=== PATIENT | female | born 1955 | race Caucasian/White ===

== ENCOUNTER 2017-10-04 19:43 | Emergency (ER) | payer OTHER ==
[2017-10-04 20:38] LABS: Bicarbonate 26 mEq/L (21-31); Glucose Level 76 mg/dL (65-120); Lipase 24 U/L (22-51); Sodium Level 140 mEq/L (135-145)
[2017-10-04 20:41] LABS: Absolute Monocytes 0.4 K/uL (0.1-1.3); Basophils % 0.8 % (0-1.3); Eosinophils % 2.1 % (0-4.4); Hematocrit 34.6 % (36.0-45.0); MCH 30.6 pg (27.0-35.0); MCV 90.3 fL (80-100); MPV 8.1 fL (7.6-11.3); Monocytes % 8.9 % (3.3-12.3); RBC Red Blood Cell Count 3.83 M/uL (3.86-4.86)
[2017-10-04 20:43] LABS: Protime INR 0.88
[2017-10-04 20:44] LABS: ALT/SGPT 14 IU/L (10-60); AST/SGOT 25 IU/L (10-42); Albumin 4.1 g/dL (3.2-5.5); Alkaline Phosphatase 49 IU/L (42-121); BUN Blood Urea Nitrogen 18 mg/dL (6-20); Bilirubin Direct < 0.1 mg/dL (0-0.2); Bilirubin Total 0.4 mg/dL (0.3-1.2); Creatine Phosphokinase 217 IU/L (22-269); Magnesium 2.1 mg/dL (1.8-2.5); Protein, Total 7.1 g/dL (6.0-8.3)
[2017-10-04 20:47] LABS: CKMB Creatine Kinase MB 2.5 ng/ml (0.3-4.0)
[2017-10-04] MEDS ORDERED: NA CHLORIDE 0.9% 500 ML ONE (21:06)
[2017-10-04] MEDS ORDERED: MORPHINE 4 MG/ML SYR ONE ×2 (21:06→23:42)
[2017-10-04] MEDS ORDERED: FAMOTIDINE 20 MG/2 ML VIAL IV ONE (21:06)
[2017-10-04] MEDS ORDERED: ONDANSETRON 4 MG/2 ML VIAL ONE (21:06)
[2017-10-04] MEDS ORDERED: ASPIRIN 81 MG CHEWABLE TABLET ONE (21:13)
[2017-10-04 22:00] LABS: Urine Blood NEGATIVE (NEG); Urine Glucose NEGATIVE (NEG); Urine Protein NEGATIVE (NEG); Urine Specific Gravity 1.025 (1.005-1.030)
[2017-10-04] MEDS ORDERED: MAGNE/ALUM HYDROXD 30 ML UCUP ONE (22:03)
[2017-10-04] MEDS ORDERED: LIDOCAINE VISCOUS 2% SOLN 15 ML UDC ONE (22:03)
--- NOTE | 2017-10-05 00:13 | EDPHYS ---
Physician Documentation [facility] Name: Lauren Hyman Age: 61 yrs Sex: Female : 1955 Arrival Date: 10/04/2017 Time: 19:47 Bed 7 Private MD: ED Physician Alli Carrillo HPI: 10/04 19:57 This 61 yrs old Female presents to ER via Unassigned with complaints of Chest cp Pain, Breathing Difficulty. 19:57 Onset: The symptoms/episode began/occurred 2 week(s) ago. cp 19:57 The patient or guardian reports chest pain that is located primarily in the xyphoid cp area and right lower anterior chest area. 19:57 The pain does not radiate. Associated signs and symptoms: Pertinent positives: right cp upper abdominal pain, Pertinent negatives: diaphoresis, headache, lower extremity pain, lower extremity swelling, palpitations, recent travel, shortness of breath, syncope, vomiting. The chest pain is described as sharp. Duration: The patient or guardian reports multiple episodes, that wax and wane, became persistent yesterday. Severity of pain: in the emergency department the pain is unchanged despite home interventions. Historical: - Allergies: 21:17 No Known Allergies; ea - Home Meds: 21:17 levothyroxine oral [Active]; Suboxone sublingual sublingual [Active]; ea - PMHx: 21:17 Hypothyroidism; Back pain; ea - Immunization history:: Adult Immunizations up to date. - Social history:: Smoking status: Patient/guardian denies using tobacco. ROS: 20:00 Constitutional: Negative for body aches, chills, fever, poor PO intake. cp 20:00 Eyes: Negative for injury, pain, redness, and discharge. cp 20:00 ENT: Negative for drainage from ear(s), ear pain, sore throat, difficulty swallowing, difficulty handling secretions. 20:00 Neck: Negative for pain with movement, pain at rest, stiffness. 20:00 Cardiovascular: Positive for chest pain, of the xyphoid area, Negative for edema, palpitations. 20:00 Respiratory: Negative for cough, wheezing. 20:00 Abdomen/GI: Positive for abdominal pain, of the right upper quadrant, Negative for nausea, vomiting, and diarrhea, anorexia, black/tarry stool, rectal bleeding. 20:00 Back: Negative for pain at rest, pain with movement, radiated pain. 20:00 : Negative for urinary symptoms. 20:00 Skin: Negative for cellulitis, rash. 20:00 Neuro: Negative for altered mental status, headache, syncope, near syncope, weakness. 20:00 All other systems are negative. Exam: 20:05 ECG was reviewed by the Attending Physician. cp 20:08 Head/Face: Normocephalic, atraumatic. Eyes: Pupils equal round and reactive to light, cp extra-ocular motions intact. Lids and lashes normal. Conjunctiva and sclera are non-icteric and not injected. Cornea within normal limits. Periorbital areas with no swelling, redness, or edema. ENT: Nares patent. No nasal discharge, no septal abnormalities noted. Tympanic membranes are normal and external auditory canals are clear. Oropharynx with no redness, swelling, or masses, exudates, or evidence of obstruction, uvula midline. Mucous membranes moist. 20:08 Constitutional: The patient appears in no acute distress, alert, awake, non-diaphoretic, non-toxic, well developed, well nourished, uncomfortable. 20:08 Chest/axilla: Inspection: normal, Palpation: crepitus, is not appreciated, tenderness, that is mild, of the xyphoid area. 20:08 Cardiovascular: Rate: normal, Rhythm: regular, Pulses: Pulses are 2+ in right radial artery and left radial artery. JVD: is not appreciated. 20:08 Respiratory: the patient does not display signs of respiratory distress, Respirations: normal, no use of accessory muscles, no retractions, no splinting, no tachypnea, labored breathing, is not present, Breath sounds: are clear throughout, no decreased breath sounds, no stridor, no wheezing. 20:08 Abdomen/GI: Inspection: abdomen appears normal, Bowel sounds: active, all quadrants, Palpation: soft, in all quadrants, mild abdominal tenderness, in the right upper quadrant, rebound tenderness, is not appreciated, voluntary guarding, is not appreciated, involuntary guarding, is not appreciated. 20:08 Back: pain, is absent, ROM is normal. 20:08 Skin: cellulitis, is not appreciated, no rash present. 23:20 ECG was reviewed by the Attending Physician. cp Vital Signs: 19:40 BP 149 / 82; Pulse 75; Resp 18; Temp 98.7(O); Pulse Ox 100% on R/A; Pain 7/10; ea 20:54 BP 126 / 80; Pulse 71; Resp 18; Pulse Ox 100% ; ea 21:24 BP 131 / 75; Pulse 66; Resp 17 S; Pulse Ox 100% ; ea 22:45 BP 129 / 86; Pulse 74; Resp 18 S; Pulse Ox 99% on R/A; ea 23:19 BP 123 / 78; Pulse 72; Resp 18; Pulse Ox 99% on R/A; ea 10/05 00:22 BP 118 / 70; Pulse 68; Resp 18; Pulse Ox 99% on R/A; Pain 2/10; ea MDM: 10/04 19:53 Patient medically screened. cp 20:00 Differential diagnosis: abnormal EKG, acute myocardial infarction, cholecystitis, cp Cholelithiasis costochondritis, esophagitis, gastritis, gastroesophageal reflux disease (GERD), pancreatitis, pericarditis, pleurisy, pneumonia, pneumothorax, pulmonary embolus, stable angina, thoracic aortic disection, unstable angina. 10/05 00:05 Data reviewed: vital signs, nurses notes, lab test result(s), EKG, radiologic studies, cp plain films, ultrasound. 00:05 The patient was given aspirin in the Emergency Department. cp 00:05 ED course: VSS. Initial and repeat EKG and troponin level negative for acute IL. Will cp discharge to home for continued monitoring. 10/04 19:58 Order name: Basic Metabolic Panel; Complete Time: 21:01 cp 10/04 21:02 Interpretation: Normal except: CRE 1.17; GFR 47. cp 10/04 19:58 Order name: BNP; Complete Time: 21:01 cp 10/04 19:58 Order name: CBC with Diff; Complete Time: 21:01 cp 10/04 21:02 Interpretation: Normal except: RBC 3.83; HGB 11.7; HCT 34.6. cp 10/04 19:58 Order name: Ckmb; Complete Time: 21:01 cp 10/04 19:58 Order name: CPK; Complete Time: 21:01 cp 10/04 19:58 Order name: LFT's; Complete Time: 21:01 cp 10/04 19:58 Order name: Magnesium; Complete Time: 21:01 cp 10/04 19:58 Order name: PT-INR; Complete Time: 21:01 cp 10/04 19:58 Order name: Ptt, Activated; Complete Time: 21:01 cp 10/04 19:58 Order name: Troponin (emerg Dept Use Only); Complete Time: 21:01 cp 10/04 19:58 Order name: XRAY Chest (1 view) cp 10/04 19:58 Order name: Lipase; Complete Time: 21:01 cp 10/04 21:51 Order name: Urine Dipstick--Ancillary (enter results); Complete Time: 22:08 em1 10/04 22:09 Interpretation: Reviewed. cp 10/04 23:04 Order name: Troponin I; Complete Time: 00:04 cp 10/05 00:04 Interpretation: TROP < 0.03; Reviewed. 10/04 19:58 Order name: EKG; Complete Time: 19:59 cp 10/04 19:58 Order name: Cardiac monitoring; Complete Time: 20:57 cp 10/04 19:58 Order name: EKG - Nurse/Tech; Complete Time: 20:07 cp 10/04 19:58 Order name: IV Saline Lock; Complete Time: 20:52 cp 10/04 19:58 Order name: Labs collected and sent; Complete Time: 20:52 cp 10/04 19:58 Order name: O2 Per Protocol; Complete Time: 20:52 cp 10/04 19:58 Order name: O2 Sat Monitoring; Complete Time: 20:52 cp 10/04 20:11 Order name: US Abdomen Limited: RUQ/epigastric area cp 10/04 23:04 Order name: EKG; Complete Time: 23:04 cp 10/04 19:58 Order name: Urine Dipstick-Ancillary (obtain specimen); Complete Time: 21:40 cp 10/04 23:04 Order name: EKG - Nurse/Tech; Complete Time: 23:19 cp EC/29 20:05 Rate is 72 beats/min. Rhythm is regular. NE interval is normal. QRS interval is normal. cp QT interval is normal. No ST changes noted. Interpreted by me. Reviewed by me. 23:20 Rate is 69 beats/min. Rhythm is regular. NE interval is normal. QRS interval is normal. cp QT interval is normal. No ST changes noted. Interpreted by me. Reviewed by me. Administered Medications: 20:51 Drug: Pepcid 20 mg Route: IVP; Site: right antecubital; ak1 20:57 Follow up: Response: No adverse reaction ak1 20:51 Drug: morphine 2 mg Route: IVP; Site: right antecubital; ak1 20:57 Follow up: Response: No adverse reaction ak1 20:52 Drug: NS 0.9% 500 ml Route: IV; Rate: bolus; Site: right antecubital; ak1 20:52 Drug: Zofran 4 mg Route: IVP; Site: right antecubital; ak1 20:56 Follow up: Response: No adverse reaction ak1 20:56 Drug: Aspirin Chewable Tablet 324 mg Route: PO; ak1 20:57 Follow up: Response: No adverse reaction ak1 21:46 Drug: GI Cocktail without - (Maalox Suspension 30 ml, Lidocaine Liquid 2 % 15 ea ml) Route: PO; 22:30 Follow up: Response: No adverse reaction; Pain is decreased ea 23:27 Drug: morphine 2 mg Route: IVP; Site: right antecubital; ea 10/05 00:00 Follow up: Response: No adverse reaction; Pain is decreased ea Disposition: 15:57 Co-signature as Attending Physician, Alli Carrillo MD I agree with the assessment and pauline plan of care. Disposition: 10/05/17 00:12 Discharged to Home. Impression: Chest pain, unspecified. - Condition is Stable. - Discharge Instructions: Nonspecific Chest Pain, Aspirin and Your Heart. - Prescriptions for Protonix 40 mg Oral Tablet - take 1 tablet by ORAL route once daily; 30 tablet. - Medication Reconciliation Form, Thank You Letter, Antibiotic Education, Prescription Opioid Use form. - Follow up: Emery Quinteros MD; When: 2 - 3 days; Reason: Recheck today's complaints. Follow up: Private Physician; When: DR Ann, business test analyst, next 2-3 days; Reason: Recheck today's complaints. - Problem is new. - Symptoms have improved. Signatures: Dispatcher [employer] Alli Sharma MD MD cha Krenek, Amber, RN RN ak1 Alli Constantino PA PA cp Antunez, Elena RN RN yanick
--- NOTE | 2017-10-05 00:13 | ER ---
Nurse's Notes [facility] Name: Lauren Hyman Age: 61 yrs Sex: Female : 1955 Arrival Date: 10/04/2017 Time: 19:47 Bed 7 Private MD: Diagnosis: Chest pain, unspecified Presentation: 10/04 19:40 Method Of Arrival: Wheelchair ea 19:40 Presenting complaint: Patient states: She started having chest pain 2 weeks ago that ea would come and go but yesterday she started having chest pain and did not go away. Pt reports pain is midsternal, sharp , constant and reports pain does not radiate. Transition of care: patient was not received from another setting of care. Onset of symptoms was October 04, 2017. Care prior to arrival: None. 19:40 Acuity: ADALI 3 ea Triage Assessment: 19:30 General: Appears in no apparent distress. uncomfortable, Behavior is calm, cooperative, ea appropriate for age. Pain: Complains of pain in mid-sternal area Pain does not radiate. Pain currently is 7 out of 10 on a pain scale. Quality of pain is described as sharp, Pain began 1 day ago. Is continuous. EENT: No deficits noted. Neuro: Level of Consciousness is awake, alert, obeys commands, Oriented to person, place, time, situation, Appropriate for age. Cardiovascular: Heart tones present Patient's skin is warm and dry. Respiratory: Airway is patent Respiratory effort is even, unlabored, Respiratory pattern is regular, symmetrical, Breath sounds are clear bilaterally. GI: No signs and/or symptoms were reported involving the gastrointestinal system. : No signs and/or symptoms were reported regarding the genitourinary system. 19:50 Derm: Skin is pink, warm \T\ dry. ea Historical: - Allergies: 21:17 No Known Allergies; ea - Home Meds: 21:17 levothyroxine oral [Active]; Suboxone sublingual sublingual [Active]; ea - PMHx: 21:17 Hypothyroidism; Back pain; ea - Immunization history:: Adult Immunizations up to date. - Social history:: Smoking status: Patient/guardian denies using tobacco. Screenin:18 Abuse screen: Denies threats or abuse. Nutritional screening: No deficits noted. ea Tuberculosis screening: No symptoms or risk factors identified. Fall Risk None identified. Assessment: 20:55 Reassessment: Patient and/or family updated on plan of care and expected duration. Pain ea level reassessed. Patient is alert, oriented x 3, equal unlabored respirations, skin warm/dry/pink. 20:55 Pain: Complains of pain in mid-sternal area Pain does not radiate. Quality of pain is ea described as sharp. 21:24 Reassessment: Patient and/or family updated on plan of care and expected duration. Pain ea level reassessed. Patient is alert, oriented x 3, equal unlabored respirations, skin warm/dry/pink. 22:50 Reassessment: Patient and/or family updated on plan of care and expected duration. Pain ea level reassessed. Patient is alert, oriented x 3, equal unlabored respirations, skin warm/dry/pink. 23:20 Reassessment: Patient and/or family updated on plan of care and expected duration. Pain ea level reassessed. Patient is alert, oriented x 3, equal unlabored respirations, skin warm/dry/pink. Patient complaining of pain, provider notified, order obtained, medication administered, pt tolerated well. 10/05 00:20 Reassessment: Patient and/or family updated on plan of care and expected duration. Pain ea level reassessed. Patient is alert, oriented x 3, equal unlabored respirations, skin warm/dry/pink. Discharge instructions given to patient, verbalized the understanding of instructions. Vital Signs: 10/04 19:40 BP 149 / 82; Pulse 75; Resp 18; Temp 98.7(O); Pulse Ox 100% on R/A; Pain 7/10; ea 20:54 BP 126 / 80; Pulse 71; Resp 18; Pulse Ox 100% ; ea 21:24 BP 131 / 75; Pulse 66; Resp 17 S; Pulse Ox 100% ; ea 22:45 BP 129 / 86; Pulse 74; Resp 18 S; Pulse Ox 99% on R/A; ea 23:19 BP 123 / 78; Pulse 72; Resp 18; Pulse Ox 99% on R/A; ea 10/05 00:22 BP 118 / 70; Pulse 68; Resp 18; Pulse Ox 99% on R/A; Pain 2/10; ea ED Course: 10/04 19:40 Arm band placed on. ea 19:40 Patient has correct armband on for positive identification. chief nursing officer on. Pulse ea ox on. NIBP on. 19:47 Patient arrived in ED. al2 19:52 Alli Constantino PA is PHCP. cp 19:52 Alli Carrillo MD is Attending Physician. cp 20:00 Inserted saline lock: 22 gauge in right antecubital area, using aseptic technique. ea Blood collected. 20:30 Radiology exam delayed due to PT IN CT. ml 20:41 Ultrasound completed. aa4 20:42 US Abdomen Limited: RUQ/epigastric area In Process Unspecified. EDMS 20:55 X-ray completed. Portable x-ray completed in exam room. Patient tolerated procedure ml well. 20:55 XRAY Chest (1 view) In Process Unspecified. EDMS 21:11 Vianney Grace, YON is Primary Nurse. ea 21:15 Triage completed. ea 21:22 Patient maintains SpO2 saturation greater than 95% on room air. ea 21:45 Urine collected: clean catch specimen, clear. cb2 23:19 EKG done, by ED staff, reviewed by Alli COVARRUBIAS. cb2 10/05 00:11 Emery Quinteros MD is Referral Physician. cp 00:11 Referral Physician role handed off by Emery Quinteros MD cp 00:21 No provider procedures requiring assistance completed. IV discontinued, intact, ea bleeding controlled, No redness/swelling at site. Pressure dressing applied. Administered Medications: 10/04 20:51 Drug: Pepcid 20 mg Route: IVP; Site: right antecubital; ak1 20:57 Follow up: Response: No adverse reaction ak1 20:51 Drug: morphine 2 mg Route: IVP; Site: right antecubital; ak1 20:57 Follow up: Response: No adverse reaction ak1 20:52 Drug: NS 0.9% 500 ml Route: IV; Rate: bolus; Site: right antecubital; ak1 20:52 Drug: Zofran 4 mg Route: IVP; Site: right antecubital; ak1 20:56 Follow up: Response: No adverse reaction ak1 20:56 Drug: Aspirin Chewable Tablet 324 mg Route: PO; ak1 20:57 Follow up: Response: No adverse reaction ak1 21:46 Drug: GI Cocktail without - (Maalox Suspension 30 ml, Lidocaine Liquid 2 % 15 ea ml) Route: PO; 22:30 Follow up: Response: No adverse reaction; Pain is decreased ea 23:27 Drug: morphine 2 mg Route: IVP; Site: right antecubital; ea 10/05 00:00 Follow up: Response: No adverse reaction; Pain is decreased ea Outcome: 00:12 Discharge ordered by MD. lilian 00:21 Discharged to home ambulatory, with friend. ea 00:21 Condition: improved 00:21 Discharge instructions given to patient, Instructed on discharge instructions, follow up and referral plans. medication usage, Demonstrated understanding of instructions, follow-up care, medications, Prescriptions given X 1. 00:25 Patient left the ED. ea Signatures: Dispatcher [employer] EDMS Josie Lara Amanda aa4 Gabriella Cerna RN RN ak1 Alli Constantino PA PA cp Bulan, Christian cb2 Antunez, Elena RN RN Ely Sadler2 Corrections: (The following items were deleted from the chart) 10/04 21: 17:40 Presenting complaint: Patient states: She started having chest pain 2 weeks ago ea that would come and go but yesterday she started having chest pain and did not go away. Pt reports pain is midsternal, sharp , constant and reports pain does not radiate. ea 21: 17:40 Transition of care: patient was not received from another setting of care. ea ea 21:21 17:40 Onset of symptoms was October 04, 2017 ea 21: 17:40 Care prior to arrival: None. ea ea 21:21 17:40 Method Of Arrival: Wheelchair ea ea 21: 17:40 Acuity: ADALI 3 ea ea : 21:20 Arm band placed on ea ea
--- NOTE | 2017-10-05 09:31 | RAD REPORT ---
EXAM DESCRIPTION: RAD - Chest Single View - 10/04/2017 8:56 pm CLINICAL HISTORY: Chest pain, difficulty breathing COMPARISON: August 22 TECHNIQUE: AP portable chest image was obtained 2046 hours . FINDINGS: Lungs are clear. Heart and vasculature are normal. No measurable pleural effusion and no p neumothorax. No gross bony abnormality seen. No acute aortic findings suspected. IMPRESSION: No acute cardiopulmonary process. No significant interval change.
--- NOTE | 2017-10-05 10:22 | RAD REPORT ---
EXAM DESCRIPTION: US - Abdomen Exam Limited - 10/04/2017 8:42 pm CLINICAL HISTORY: Abdominal pain, right upper quadrant pain COMPARISON: CT study 2011 FINDINGS: No gallstones, sludge or other abnormalities within the gallbladder lumen. There is no wal l thickening or pericholecystic fluid. No common duct stone or biliary tree dilatation identified. IMPRESSION: Normal gallbladder and biliary tree ultrasound.
--- NOTE | 2017-10-07 12:56 | EKG ---
Test Date: 2017-10-04 Test Time: 23:15:33 Machine Room Operator: JORDAN MEASUREMENT RESULTS: Intervals: Rate: 69 WI: 188 QRSD: 84 QT: 400 QTc: 428 [place]: P: 83 WI: 188 QRS: 71 T: 68 INTERPRETIVE STATEMENTS: Normal sinus rhythm Minimal voltage criteria for LVH, may be normal variant Borderline ECG Compared to ECG 05/11/2014 13:11:06 No significant changes Electronically Signed On 10-07-17 12:56:03 CDT by Eemry Quinteros
--- NOTE | 2017-10-07 12:59 | EKG ---
Test Date: 2017-10-04 Test Time: 20:02:01 Household Assistant: LADI MEASUREMENT RESULTS: Intervals: Rate: 72 CO: 178 QRSD: 84 QT: 392 QTc: 429 [place]: P: 83 CO: 178 QRS: 75 T: 71 INTERPRETIVE STATEMENTS: Normal sinus rhythm Moderate voltage criteria for LVH, may be normal variant Borderline ECG Compared to ECG 05/11/2014 13:11:06 No significant changes Electronically Signed On 10-07-17 12:58:22 CDT by Emery Quinteros
== END 2017-10-05 00:25 | disposition home or self-care (01) ==
LOC: ER 19:43
DX: R07.9 Chest pain, unspecified (principal); E03.9 Hypothyroidism, unspecified
CPT/HCPCS: 36415; 71045; 76705; 80048; 80076; 81003; 82550; 82553; 83690; 83735; 83880; 84484; 85025; 85610; 85730; 93005; 96374; 96375; 99285; J2405

== ENCOUNTER 2025-02-17 14:51 | Emergency (ER) | payer OTHER ==
[2025-02-17] MEDS ORDERED: CYCLOBENZAPRINE 10 MG TAB ONE (16:22)
[2025-02-17] MEDS ORDERED: KETOROLAC 30 MG/ML INJ ONE (16:22)
[2025-02-17] MEDS ORDERED: HYDROCODONE/APAP 5/325 MG TAB ONE (16:22)
--- NOTE | 2025-02-17 17:39 | RAD REPORT ---
EXAM: XR Hand Right 3 View HISTORY: [facility] MAIN Pain;Swelling Bed: COMPARISON: None TECHNIQUE: 3 radiographic views of the RIGHT hand submitted. FINDINGS: No evidence of acute fracture or dislocation. Joint alignment is maintained. No soft tissu e swelling is seen.. Mild scattered degenerative changes most notably at the thumb base. IMPRESSION: No acute bone or joint abnormality. Mild scattered degenerative changes.
--- NOTE | 2025-02-17 18:22 | ER ---
Nurse's Notes [facility] Name: Lauren Hyman Age: 69 yrs Sex: Female : 1955 Arrival Date: 02/17/2025 Time: 14:51 Bed 11 Private MD: Diagnosis: Other sprain of right ring finger Presentation: 02/17 15:11 Chief complaint: Right 4th finger pain after picking up book today. Coronavirus screen: hb At this time, the client does not indicate any symptoms associated with coronavirus-19. Ebola Screen: No symptoms or risks identified at this time. Initial Sepsis Screen: Does the patient meet any 2 criteria? No. Patient's initial sepsis screen is negative. Does the patient have a suspected source of infection? No. Patient's initial sepsis screen is negative. Risk Assessment: Do you want to hurt yourself or someone else? Patient reports no desire to harm self or others. Onset of symptoms was February 17, 2025. 15:11 Method Of Arrival: Ambulatory hb 15:11 Acuity: ADALI 4 hb Triage Assessment: 18:40 General: Appears in no apparent distress. Behavior is calm, cooperative. iw Historical: - Allergies: 15:12 No Known Allergies; hb - PMHx: 15:12 Back pain; Hypothyroidism; hb - PSHx: 15:12 Hysterectomy; hb Screenin:39 [facility] ED Fall Risk Assessment (Adult) History of falling in the last 3 months, iw including since admission No falls in past 3 months (0 pts) Confusion or Disorientation No (0 pts) Intoxicated or Sedated No (0 pts) Impaired Gait No (0 pts) Mobility Assist Device Used No (0 pt) Altered Elimination No (0 pt) Score/Fall Risk Level 0 - 2 = Low Risk Oriented to surroundings, Maintained a safe environment. Abuse screen: Denies threats or abuse. Denies injuries from another. Nutritional screening: No deficits noted. Tuberculosis screening: No symptoms or risk factors identified. Assessment: 16:31 Reassessment: Patient and/or family updated on plan of care and expected duration. Pain ll1 level reassessed. Vital Signs: 15:11 BP 118 / 76; Pulse 80; Resp 18; Temp 98.5; Pulse Ox 99% ; Weight 46.72 kg; Height 5 ft. hb 5 in. ; Pain 8/10; 18:39 BP 118 / 74; Pulse 89; Resp 16; Pulse Ox 100% on R/A; iw 15:11 Body Mass Index 17.14 (46.72 kg, 165.1 cm) hb 15:11 Pain Scale: Adult hb ED Course: 14:53 Patient arrived in ED. cj3 14:56 Dalton Henderson MD is Attending Physician. iw 14:56 Pedro Luis Padilla FNP-C [facility]. iw 15:12 Triage completed. hb 15:13 Arm band placed on. hb 15:31 Hand Right 3 View XRAY In Process Unspecified. EDMS 17:59 Patient placed in an exam room, on a stretcher. ll1 18:34 Charo Stevens, RN is Primary Nurse. iw 18:39 No provider procedures requiring assistance completed. IV discontinued, intact, iw bleeding controlled, No redness/swelling at site. Pressure dressing applied. Aluminum finger splint applied to dorsal aspect of middle phalanx of right middle finger and dorsal aspect of proximal phalanx of right middle finger. Administered Medications: 16:31 Drug: HYDROcodone-acetaminophen PO 5 mg-325 mg 2 tabs PO once {Note: pain 9/10 RASS 0.} ll1 Route: PO; 17:35 Follow up: Response: No adverse reaction; Pain is decreased iw 16:31 Drug: Ketorolac IM 30 mg IM once Route: IM; Site: right deltoid; ll1 17:35 Follow up: Response: No adverse reaction; Pain is decreased iw 16:31 Drug: Cyclobenzaprine PO 10 mg PO once Route: PO; ll1 17:35 Follow up: Response: No adverse reaction; Pain is decreased iw Outcome: 18:22 Discharge ordered by . dr5 18:40 Discharged to home ambulatory, with friend, iw 18:40 Condition: good 18:40 Discharge instructions given to patient, family, Instructed on discharge instructions, follow up and referral plans. medication usage, Demonstrated understanding of instructions, follow-up care, medications, Prescriptions given X 1, 18:40 Patient left the ED. iw Signatures: Dispatcher [employer] EDMN Charo Stevens RN RN Malini Burleson RN RN hb Lewis, Lynsay, RN RN ll1 Pedro Luis Padilla FNP-C ASSOCIATE DIRECTOR [id number] Christy Leonard cj3
--- NOTE | 2025-02-17 18:22 | EDPHYS ---
Physician Documentation [facility] Name: Lauren Hyman Age: 69 yrs Sex: Female : 1955 Arrival Date: 02/17/2025 Time: 14:51 Bed 11 Private MD: ED Physician Dalton Henderson HPI: 02/17 15:21 This 69 yrs old Female presents to ER via Ambulatory with complaints of Hand dr5 Injury - RT. 15:21 The complaints affect the dorsal aspect of proximal phalanx of right ring finger and dr5 palmar aspect of proximal phalanx of right ring finger. Onset: The symptoms/episode began/occurred acutely. The patient is a 69-year-old female with history of hypothyroidism and back pain coming in with right fourth digit pain after picking up a book. Patient complains of right fourth digit pain at MCP. Patient denies numbness or tingling. Patient reports history of osteoarthritis.. Historical: - Allergies: 15:12 No Known Allergies; hb - PMHx: 15:12 Back pain; Hypothyroidism; hb - PSHx: 15:12 Hysterectomy; hb ROS: 15:29 Constitutional: as per hpi dr5 Exam: 15:31 Constitutional: This is a well developed, well nourished patient who is awake, alert, dr5 and in no acute distress. Head/Face: Normocephalic, atraumatic. Eyes: Pupils equal round and reactive to light, extra-ocular motions intact. Lids and lashes normal. Conjunctiva and sclera are non-icteric and not injected. Cornea within normal limits. Periorbital areas with no swelling, redness, or edema. Neck: Trachea midline, no thyromegaly or masses palpated, and no cervical lymphadenopathy. Supple, full range of motion without nuchal rigidity, or vertebral point tenderness. No Meningismus. Chest/axilla: Normal chest wall appearance and motion. Nontender with no deformity. No lesions are appreciated. Cardiovascular: Regular rate and rhythm with a normal S1 and S2. Normal PMI, no JVD. No pulse deficits. Respiratory: Lungs have equal breath sounds bilaterally, clear to auscultation. No rales, rhonchi or wheezes noted. No increased work of breathing, no retractions or nasal flaring. Abdomen/GI: Soft, non-tender, non-distended Back: No spinal tenderness. No costovertebral tenderness. Full range of motion. Skin: Warm, dry with normal turgor. Normal color with no rashes, no lesions, and no evidence of cellulitis. Neuro: Awake and alert, GCS 15, oriented to person, place, time, and situation. Cranial nerves II-XII grossly intact. Motor strength 5/5 in all extremities. Sensory grossly intact. Cerebellar exam normal. Normal gait. 15:31 Musculoskeletal/extremity: Extremities: grossly normal except: noted in the dorsal aspect of proximal phalanx of right ring finger: pain, swelling, tenderness, ROM: limited passive range of motion, in the dorsal aspect of proximal phalanx of right ring finger, Circulation is intact in all extremities. Pulses: Sensation intact. Vital Signs: 15:11 BP 118 / 76; Pulse 80; Resp 18; Temp 98.5; Pulse Ox 99% ; Weight 46.72 kg; Height 5 ft. hb 5 in. ; Pain 8/10; 18:39 BP 118 / 74; Pulse 89; Resp 16; Pulse Ox 100% on R/A; iw 15:11 Body Mass Index 17.14 (46.72 kg, 165.1 cm) hb 15:11 Pain Scale: Adult hb Procedures: 18:39 Splinting: Splint applied to dorsal aspect of proximal phalanx of right ring finger dr5 using finger splint, applied by nurse. Examined by me, post splint application: neurovascular intact, 2+ distal pulses palpable, brisk capillary refill noted, Patient tolerated well. MDM: 14:56 Medical Screening Exam initiated dr5 18:39 Differential diagnosis: dislocation, open fracture, closed fracture, contusion, dr5 abrasion. Data reviewed: vital signs, nurses notes, radiologic studies, plain films. Consideration of Admission/Observation Escalation of care including admission/observation considered. Escalation considered patient found to have tendon injury. I considered the following discharge prescriptions or medication management in the emergency department I discussed and recommended Over The Counter medications, Medications were administered in the Emergency Department. See MAR. Independent interpretation of the following test(s) in the Emergency Department X-Ray: My interpretation is Independent termination of x-ray did not reveal any fracture.. Care significantly affected by the following Social Determinants of Health: Poor access to healthcare and/or lack of insurance, Poor access to transportation, Problems related to employment. Counseling: I had a detailed discussion with the patient and/or guardian regarding the historical points, exam findings, and any diagnostic results supporting the discharge/admit diagnosis, the presence of at least one elevated blood pressure reading (>120/80) during this emergency department visit, radiology results, the need for outpatient follow up, for definitive care, a hand specialist, to return to the emergency department if symptoms worsen or persist or if there are any questions or concerns that arise at home. Medication response: Cyclobenzaprine, Toradol, [place]. Response to treatment: the patient's symptoms have markedly improved after treatment. Special discussion: I discussed with the patient/guardian in detail that at this point there is no indication for admission to the hospital. It is understood, however, that if the symptoms persist or worsen the patient needs to return immediately for re-evaluation. Based on the history and exam findings, there is no indication for further emergent testing or inpatient evaluation. I discussed with the patient/guardian the need to see the orthopedic surgeon for further evaluation of the symptoms. ED course: Put patient in splint which she feels relief because she thinks it popped back in place. Will have patient follow-up with Chuy Almanza. I gave patient CD, report, and his information in a folder to take with her. Strict ER precautions given. All questions answered.. 02/17 15:04 Order name: Hand Right 3 View XRAY; Complete Time: 17:41 dr5 02/17 17:45 Order name: Finger Splint; Complete Time: 18:34 dr5 Administered Medications: 16:31 Drug: HYDROcodone-acetaminophen PO 5 mg-325 mg 2 tabs PO once {Note: pain 9/10 RASS 0.} ll1 Route: PO; 17:35 Follow up: Response: No adverse reaction; Pain is decreased iw 16:31 Drug: Ketorolac IM 30 mg IM once Route: IM; Site: right deltoid; ll1 17:35 Follow up: Response: No adverse reaction; Pain is decreased iw 16:31 Drug: Cyclobenzaprine PO 10 mg PO once Route: PO; ll1 17:35 Follow up: Response: No adverse reaction; Pain is decreased iw Disposition Summary: 02/17/25 18:22 Discharge Ordered Notes: Location: Home dr5 Condition: Stable dr5 Diagnosis - Other sprain of right ring finger dr5 Followup: dr5 - With: Emergency Department - When: As needed - Reason: Worsening of condition Followup: dr5 - With: Private Physician - When: 1 - 2 days - Reason: Recheck today's complaints, Continuance of care, Re-evaluation by your physician Discharge Instructions: - Discharge Summary Sheet dr5 - Cast or Splint Care, Adult dr5 - Hand Pain dr5 Forms: - Medication Reconciliation Form dr5 - Patient Portal Instructions dr5 - Leadership Thank You Letter dr5 Prescriptions: - Tramadol 50 mg Oral Tablet - take 1 tablet ORAL route every 8 hours as needed; 12 tablet; Refills: 0, dr5 Product Selection Permitted Signatures: Dispatcher [employer] EDMS Malini Burleson, RN RN Estrella Denton RN RN ll1 Pedro Luis Padilla, ANESTHESIA ATTENDING-C ANESTHESIA ATTENDING-Cdr5 Charo Stevens RN iw Corrections: (The following items were deleted from the chart) 15:04 15:04 Hand Right 3 View+[email or web address] ordered. EDAZ EDMS
[2025-02-17 19:11] VITALS: TEMP 98.5
[2025-02-17 19:13] VITALS: BP 118/74; O2SAT 100
== END 2025-02-17 18:40 | disposition home or self-care (01) ==
LOC: ER 14:51
DX: S63.694A Other sprain of right ring finger, initial encounter (principal)
CPT/HCPCS: 96372; 99284